=== PATIENT | female | born 1975 | race Caucasian/White ===

== ENCOUNTER 2017-09-19 08:46 | Day surgery (SDC) | payer SELFPAY ==
--- NOTE | 2017-09-18 10:02 | RAD REPORT ---
EXAM DESCRIPTION: RAD - Chest Pa And Lat (2 Views) - 09/18/2017 9:57 am CLINICAL HISTORY: Preop chest, kidney stone COMPARISON: None. TECHNIQUE: PA and lateral views of the chest were obtained. FINDINGS: The lungs are clear. Heart size is normal and central vasculature is within normal limit s. No pleural effusion or pneumothorax seen. No acute bony finding noted. No aortic abnormality. IMPRESSION: No acute cardiopulmonary process.
[2017-09-18 12:12] LABS: Absolute Lymphocytes (CBC) 1.4 K/uL (0.7-4.9); Absolute Monocytes 0.3 K/uL (0.1-1.3); Absolute Neutrophil 2.6 K/uL (1.8-8.0); Basophils % 0.6 % (0-1.3); Eosinophils % 4.3 % (0-4.4); Hematocrit 34.4 % (36.0-45.0); Lymphocytes % 30.2 % (15.3-44.8); MCH 29.8 pg (27.0-35.0); MCV 87.3 fL (80-100); MPV 10.6 fL (7.6-11.3); RBC Red Blood Cell Count 3.95 M/uL (3.86-4.86)
[2017-09-18 12:15] LABS: Protime INR 1.22
--- NOTE | 2017-09-18 12:16 | EKG ---
Test Date: 2017-09-18 Test Time: 09:47:32 Mill Control Operator: DERIK MEASUREMENT RESULTS: Intervals: Rate: 48 TN: 138 QRSD: 94 QT: 444 QTc: 396 [place]: P: 49 TN: 138 QRS: 31 T: 29 INTERPRETIVE STATEMENTS: Marked sinus bradycardia Abnormal ECG Compared to ECG 01/06/2012 11:23:28 Sinus rhythm no longer present Sinus arrhythmia no longer present Electronically Signed On 09-18-17 12:15:22 CDT by Josh Randhawa
[2017-09-18 12:17] LABS: Urine Appearance CLOUDY; Urine Bilirubin NEGATIVE (NEG); Urine Blood 3+ (NEG); Urine Color YELLOW; Urine Glucose NEGATIVE (NEG); Urine Protein TRACE (NEG)
[2017-09-18 12:18] LABS: BUN Blood Urea Nitrogen 14 mg/dL (6-20); Bicarbonate 30 mEq/L (21-31); Glucose Level 67 mg/dL (65-120); Sodium Level 143 mEq/L (135-145)
[2017-09-18 12:20] LABS: Phosphorus 3.9 mg/dL (2.5-4.3); Uric Acid 5.9 mg/dL (2.6-8.0)
[2017-09-18 12:44] LABS: Urine Microscopic Reflex ORDER UMIC
[2017-09-18 14:51] LABS: Calcium Oxalate Crystals- Ur PRESENT (NONE SEEN); Urine Bacteria 20-50 /HPF (<20); Urine Culture Reflex Order NOT NEEDED
[~2017-09-19 08:46] MED LIST: GENTAMICIN 100 MG/100 ML BAG 100 MG/100 ML BAG IV SCH
[2017-09-19] MEDS ORDERED: Ringers Lactate 1,000 ML IV ONE (09:11)
[2017-09-19] MEDS ORDERED: GENTAMICIN 100 MG/100 ML BAG 100 MG/100 ML BAG IV ONE (09:11)
[2017-09-19 09:30] LABS: Specific Gravity 1.015 (1.005-1.030)
[2017-09-19] MEDS ORDERED: MIDAZOLAM HCL 2 MG/2 ML INJ ONE (10:10)
[2017-09-19] MEDS ORDERED: PROPOFOL 200 MG/20 ML VIAL IV ONE (10:17)
[2017-09-19] MEDS ORDERED: LIDOCAINE 1% MPF 5 ML VIAL ONE (10:18)
[2017-09-19] MEDS ORDERED: FENTANYL CITR 100 MCG/2 ML ONE (10:18)
[2017-09-19] MEDS ORDERED: KETOROLAC 30 MG/ML INJ ONE (11:05)
[2017-09-19] MEDS ORDERED: MEPERIDINE HCL 25 MG/0.5 ML ONE (11:24)
[2017-09-19] MEDS ORDERED: ONDANSETRON 4 MG/2 ML VIAL ONE (11:25)
--- NOTE | 2017-09-19 11:41 | RAD REPORT ---
EXAM DESCRIPTION: RAD - Abdomen 1 View (KUB) - 09/19/2017 9:57 am CLINICAL HISTORY: Abdomen pain. ICD N 20.0 FINDINGS: The bowel gas pattern is unremarkable. Several left renal calculi are again demonstrated. A 12 millimeter calcification lies between the transverse processes of L2 and L3 and likely lies with in either the proximal left ureter or ureteral pelvic junction
[2017-09-19 12:41] VITALS: BP 117/59; TEMP 98.1; O2SAT 100
== END 2017-09-19 12:40 | disposition home or self-care (01) ==
LOC: OR 08:46
PROVIDERS: ATTEND Urology
PROC: 0TF4XZZ Fragmentation in Left Kidney Pelvis, External Approach (ICD-10-PCS; principal; 2017-09-19 10:45)
DX: N20.2 Calculus of kidney with calculus of ureter (principal)
CPT/HCPCS: 36415; 50590; 71046; 74018; 80048; 81003; 81015; 81025; 84100; 84550; 85025; 85610; 85730; 87077; 87086; 87088; 87186; 93005; J1580; J2175; J2250; J2405; J3010

== ENCOUNTER 2017-10-24 09:45 | Day surgery (SDC) | payer BC ==
--- NOTE | 2017-10-23 12:13 | RAD REPORT ---
EXAM DESCRIPTION: RAD - Chest Pa And Lat (2 Views) - 10/23/2017 11:55 am CLINICAL HISTORY: Flank pain Chest pain. COMPARISON: Abdomen 1 View (KUB) dated 10/02/2017; Abdomen 1 View (KUB) dated 09/19/2017; Chest Pa And Lat (2 Views) dated 09/18/2017; Abdomen 1 View (KUB) dated 09/14/2017 FINDINGS: The lungs are clear. The heart is normal in size. No displaced fractures. IMPRESSION: No acute or concerning finding suspected.
[2017-10-23 12:29] LABS: Urine Appearance CLEAR; Urine Bilirubin NEGATIVE (NEG); Urine Blood NEGATIVE (NEG); Urine Color YELLOW; Urine Glucose NEGATIVE (NEG); Urine Protein NEGATIVE (NEG); Urine pH 7.5 (5.0-7.0)
[2017-10-23 12:31] LABS: Urine Microscopic Reflex ORDER UMIC
[2017-10-23 12:34] LABS: Absolute Lymphocytes (CBC) 1.8 K/uL (0.7-4.9); Absolute Monocytes 0.4 K/uL (0.1-1.3); Absolute Neutrophil 3.2 K/uL (1.8-8.0); BUN Blood Urea Nitrogen 9 mg/dL (7-18); Basophils % 0.6 % (0-1.3); Bicarbonate 30 mmol/L (21-32); Glucose Level 71 mg/dL (74-106); Hematocrit 38.9 % (36.0-45.0); MCH 29.5 pg (27.0-35.0); MCV 88.4 fL (80-100); MPV 10.2 fL (7.6-11.3); Monocytes % 7.6 % (3.3-12.3); Potassium 3.8 mmol/L (3.5-5.1); Protime INR 1.21; RBC Red Blood Cell Count 4.41 M/uL (3.86-4.86); Sodium Level 143 mmol/L (136-145)
[2017-10-23 13:17] LABS: Urine Bacteria 20-50 /HPF (<20); Urine RBC <5 /HPF (NONE SEEN)
[2017-10-23 13:18] LABS: Urine Culture Reflex Order NOT NEEDED
--- NOTE | 2017-10-23 13:23 | EKG ---
Test Date: 2017-10-23 Test Time: 11:48:16 Junior Net Developer: ALMA MEASUREMENT RESULTS: Intervals: Rate: 57 ID: [id number] QRSD: 100 QT: 404 QTc: 393 [place]: P: 49 ID: [id number] QRS: 30 T: 49 INTERPRETIVE STATEMENTS: Sinus bradycardia with sinus arrhythmia Otherwise normal ECG Compared to ECG 09/18/2017 09:47:32 No significant changes Electronically Signed On 10-23-17 13:22:16 CDT by Josh Randhawa
[~2017-10-24 09:45] MED LIST changes: +CEFAZOLIN/SWI 1gm 0 GM/0 ML SYR ONE; +Ringers Lactate 0 ML IV ONE
[2017-10-24 10:13] VITALS: O2SAT 100
[2017-10-24] MEDS ORDERED: Ringers Lactate 1,000 ML IV ONE ×2 (10:18→14:03)
[2017-10-24] MEDS ORDERED: GENTAMICIN 100 MG/100 ML BAG 100 MG/100 ML BAG IV ONE (10:18)
[2017-10-24 10:29] LABS: Specific Gravity 1.025 (1.005-1.030)
--- NOTE | 2017-10-24 11:30 | RAD REPORT ---
EXAM DESCRIPTION: RAD - Abdomen 1 View (KUB) - 10/24/2017 10:48 am CLINICAL HISTORY: ICD N 20.0 will 20.0 FINDINGS: The bowel gas pattern is unremarkable. Two left renal calculi are seen. The known right renal calculus is not clearly visualized on this exam perhaps secondary to overlying stool within colon Patient's previously described 2 millimeter distal left ureteral calculus is not visualized on this e xam.
[2017-10-24] MEDS ORDERED: MIDAZOLAM HCL 2 MG/2 ML INJ ONE (12:45)
[2017-10-24] MEDS ORDERED: FENTANYL CITR 100 MCG/2 ML ONE (12:45)
[2017-10-24] MEDS ORDERED: PROPOFOL 200 MG/20 ML VIAL IV ONE (12:45)
[2017-10-24] MEDS ORDERED: ONDANSETRON HCL 40 MG/20 ML VIAL ONE (13:06)
--- NOTE | 2017-10-24 13:34 | RAD REPORT ---
EXAM DESCRIPTION: RAD - Urography Retrograde - 10/24/2017 1:27 pm CLINICAL HISTORY: Fluoroscopic assisted left ureteral stent placement COMPARISON: None. FINDINGS: Multiple fluoroscopic images were obtained during assisted placement of a left ureteral pi gtail stent. Images show stepwise placement of the stent. No suspicious or unexpected finding. Fluoro time was 1 minutes 7 seconds. Cumulative dose was 22.6 mGy. IMPRESSION: Fluoroscopic assisted left ureteral stent placement as detailed.
[2017-10-24] MEDS: MEPERIDINE HCL 50 MG/ML AMP ONE ×4 (14:19→14:42)
[2017-10-24 14:49] VITALS: TEMP 97.2
[2017-10-24] MEDS ORDERED: HYDROCODONE/APAP 5/325 MG TAB ONE (15:45)
[2017-10-24 16:18] VITALS: BP 123/67
== END 2017-10-24 16:10 | disposition home or self-care (01) ==
LOC: OR 09:45
PROVIDERS: ATTEND Urology
PROC: 0TF7XZZ Fragmentation in Left Ureter, External Approach (ICD-10-PCS; principal; 2017-10-24 11:30)
DX: Q62.39 Other obstructive defects of renal pelvis and ureter (principal); R39.12 Poor urinary stream; N39.0 Urinary tract infection, site not specified; N20.1 Calculus of ureter; N20.0 Calculus of kidney
CPT/HCPCS: 36415; 50590; 71046; 74018; 74420; 80048; 81003; 81015; 81025; 82330; 84100; 84550; 85025; 85610; 85730; 87086; 87088; 93005; J0690; J1580; J2175; J2250; J2405; J3010; Q9967

== ENCOUNTER 2018-05-02 03:36 | Emergency (ER) | payer BC, SELFPAY ==
[2018-05-02 04:11] LABS: Absolute Monocytes 0.5 K/uL (0.1-1.3); Absolute Neutrophil 3.9 K/uL (1.8-8.0); Basophils % 0.6 % (0-1.3); Eosinophils % 3.8 % (0-4.4); Lymphocytes % 29.8 % (15.3-44.8); MPV 10.4 fL (7.6-11.3); Monocytes % 7.1 % (3.3-12.3); RBC Red Blood Cell Count 4.53 M/uL (3.86-4.86)
[2018-05-02] MEDS ORDERED: MEPERIDINE HCL 25 MG/0.5 ML ONE ×2 (04:13→04:52)
[2018-05-02] MEDS ORDERED: NA CHLORIDE 0.9% 500 ML ONE (04:14)
[2018-05-02] MEDS ORDERED: ONDANSETRON 4 MG/2 ML VIAL ONE (04:14)
[2018-05-02] MEDS ORDERED: MAGNESIUM SULFATE 1 gm IVPB 1 GM/100 ML BAG IV ONE (04:14)
[2018-05-02] MEDS ORDERED: TAMSULOSIN 0.4 MG SR CAP ONE (04:14)
[2018-05-02 04:27] LABS: Albumin 3.7 g/dL (3.4-5.0); Bilirubin Direct 0.2 mg/dL (0-0.2); Bilirubin Total 0.5 mg/dL (0.2-1.0); Potassium 4.1 mmol/L (3.5-5.1); Protein, Total 7.4 g/dL (6.4-8.2)
--- NOTE | 2018-05-02 05:28 | EDPHYS ---
Physician Documentation [facility] Name: Jacklyn Gipson Age: 42 yrs Sex: Female : 1975 Arrival Date: 05/02/2018 Time: 03:39 Bed 6 Private MD: None, None ED Physician Leandro Gutierrez HPI: 05/02 03:50 This 42 yrs old Female presents to ER via Unassigned with complaints of rn Possible Kidney Stone. 03:50 The patient complains of pain in the right mid back. Onset: The symptoms/episode rn began/occurred 6 hour(s) ago. Associated signs and symptoms: Pertinent positives: nausea, vomiting. Severity of pain: At its worst the pain was moderate in the emergency department the pain has improved. The patient has experienced similar episodes in the past. The patient has not recently seen a physician. 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 - Social history:: Smoking status: Patient/guardian denies using tobacco. - Family history:: not pertinent. - Ebola Screening: : No symptoms or risks identified at this time. - Hospitalizations: : No recent hospitalization is reported. ROS: 03:50 Constitutional: Negative for fever, chills, and weight loss, Neck: Negative for injury, rn pain, and swelling, Cardiovascular: Negative for chest pain, palpitations, and edema, Respiratory: Negative for shortness of breath, cough, wheezing, and pleuritic chest pain, Abdomen/GI: + right flank pain, + nausea/vomiting : Negative for injury, bleeding, discharge, and swelling, MS/Extremity: Negative for injury and deformity, Skin: Negative for injury, rash, and discoloration, Neuro: Negative for headache, weakness, numbness, tingling, and seizure. Exam: 03:50 Constitutional: This is a well developed, well nourished patient who is awake, alert, rn walked to room without difficulty Eyes: Pupils equal round, extra-ocular motions intact. ENT: MMM Abdomen/GI: soft, non-tender Back: No spinal tenderness. No costovertebral tenderness. Full range of motion. Skin: Warm, dry with normal turgor. Normal color with no rashes, no lesions, and no evidence of cellulitis. MS/ Extremity: Pulses equal, no cyanosis. Neurovascular intact. Full, normal range of motion. Equal circumference. Neuro: Awake and alert, GCS 15. Motor strength 5/5 in all extremities. Sensory grossly intact. Cerebellar exam normal. Normal gait. Vital Signs: 03:52 BP 122 / 93; Pulse 65; Resp 20; Temp 98(O); Pulse Ox 99% on R/A; Weight 74.84 kg; tl2 Height 5 ft. 8 in. (172.72 cm); Pain 8/10; 04:58 BP 113 / 74; Pulse 56; Resp 18; Pulse Ox 100% on R/A; Pain 4/10; tl2 05:00 BP 117 / 73; Pulse 60; Resp 18; Pulse Ox 98% ; ea 03:52 Body Mass Index 25.09 (74.84 kg, 172.72 cm) tl2 MDM: 03:41 Patient medically screened. rn 05:19 Differential diagnosis: nephrolithiasis, UTI. rn 05:20 Data reviewed: vital signs, nurses notes, lab test result(s), radiologic studies, CT rn scan, and as a result, I will discharge patient. Counseling: I had a detailed discussion with the patient and/or guardian regarding: the historical points, exam findings, and any diagnostic results supporting the discharge/admit diagnosis, lab results, radiology results, the need for outpatient follow up, to return to the emergency department if symptoms worsen or persist or if there are any questions or concerns that arise at home. Response to treatment: the patient's symptoms have markedly improved after treatment, and as a result, I will discharge patient. Special discussion: I discussed with the patient/guardian in detail that at this point there is no indication for admission to the hospital. It is understood, however, that if the symptoms persist or worsen the patient needs to return immediately for re-evaluation. Based on the history and exam findings, there is no indication for further emergent testing or inpatient evaluation. I discussed with the patient/guardian the need to see the urologist for further evaluation of the symptoms. ED course: Reports feeling much better, 6mm stone, much smaller than her previous 15mm, offered admission for procedure if needs vs observation, patient chooses to go home, does not want to have surgery, return precautions given and understood.. 05/02 03:49 Order name: Basic Metabolic Panel; Complete Time: 05:19 rn 05/02 03:49 Order name: CBC with Diff; Complete Time: 05:19 rn 05/02 03:49 Order name: Hepatic Function; Complete Time: 05:19 rn 05/02 03:49 Order name: CT Stone Protocol rn 05/02 04:14 Order name: Urine Dipstick--Ancillary (enter results) 05/02 04:14 Order name: Urine --Ancillary (enter results) 05/02 03:49 Order name: IV Saline Lock; Complete Time: 04:10 rn 05/02 03:49 Order name: Labs collected and sent; Complete Time: 04:10 rn 05/02 03:49 Order name: Urine Dipstick-Ancillary (obtain specimen); Complete Time: 03:56 rn 05/02 03:49 Order name: Urine Test (obtain specimen); Complete Time: 03:56 rn Administered Medications: 04:12 Drug: Demerol 25 mg Route: IVP; Site: right antecubital; tl2 04:39 Follow up: Response: No adverse reaction; Pain is decreased tl2 04:12 Drug: Zofran 4 mg Route: IVP; Site: right antecubital; tl2 04:26 Follow up: Response: No adverse reaction; Nausea is decreased tl2 04:13 Drug: NS 0.9% 500 ml Route: IV; Rate: bolus; Site: right antecubital; tl2 05:00 Follow up: Response: No adverse reaction; IV Status: Completed infusion; IV Intake: ea 500ml 04:25 Drug: Magnesium Sulfate 1 grams Route: IVPB; Infused Over: 1 hrs; Site: right tl2 antecubital; 05:30 Follow up: Response: No adverse reaction; IV Status: Completed infusion ea 04:25 Drug: Flomax 0.4 mg Route: PO; tl2 05:00 Follow up: Response: No adverse reaction ea 04:56 Drug: Demerol 25 mg Route: IVP; Site: right antecubital; tl2 05:30 Follow up: Response: No adverse reaction; Pain is decreased ea 05:33 Drug: TORadol 30 mg Route: IVP; Site: right antecubital; ea 05:45 Follow up: Response: No adverse reaction; Medication administered at discharge. ea Disposition: 05/02/18 05:27 Discharged to Home. Impression: Ureterolithiasis. - Condition is Stable. - Discharge Instructions: Kidney Stones. - Prescriptions for Zofran ODT 4 mg Oral tablet,disintegrating - place 1 tablet by TRANSLINGUAL route every 8 hours As needed; 20 tablet. Tylenol- Codeine #3 300-30 mg Oral Tablet - take 2 tablet by ORAL route every 6 hours As needed; 30 tablet. Flomax 0.4 mg Oral Capsule, Sust. Release 24 hr - take 1 capsule by ORAL route once daily 1/2 hour following the same meal each day; 3 capsule. - Medication Reconciliation Form, Thank You Letter, Antibiotic Education, Prescription Opioid Use, Work release form form. - Follow up: Brando Ann MD; When: As needed; Reason: Recheck today's complaints, Re-evaluation by your physician. - Problem is new. - Symptoms have improved. Signatures: Dispatcher [employer] EDMS Leandro Gutierrez MD MD rn Knox, Taylor, RN RN tl2 Elizabeth Marquez RN RN ea Corrections: (The following items were deleted from the chart) 05:48 05:27 05/02/2018 05:27 Discharged to Home. Impression: Ureterolithiasis. Condition is ea Stable. Forms are Medication Reconciliation Form, Thank You Letter, Antibiotic Education, Prescription Opioid Use. Follow up: Brando Ann; When: As needed; Reason: Recheck today's complaints, Re-evaluation by your physician. Problem is new. Symptoms have improved. rn
--- NOTE | 2018-05-02 05:28 | ER ---
Nurse's Notes [facility] Name: Jacklyn Gipson Age: 42 yrs Sex: Female : 1975 Arrival Date: 05/02/2018 Time: 03:39 Bed 6 Private MD: None, None Diagnosis: Ureterolithiasis Presentation: 05/02 03:50 Presenting complaint: Patient states: "I'm pretty positive that I have another kidney tl2 stone." Pt reports having a kidney stone with shockwave treatment in the summer of this year. States pain feels the same. R flank pain that radiate to RLQ since 2100 last night. Reports vomiting. Transition of care: patient was not received from another setting of care. Onset of symptoms was May 01, 2018 at 21:00. Risk Assessment: Do you want to hurt yourself or someone else? Patient reports no desire to harm self or others. Initial Sepsis Screen: Does the patient meet any 2 criteria? No. Patient's initial sepsis screen is negative. Does the patient have a suspected source of infection? No. Patient's initial sepsis screen is negative. Care prior to arrival: None. 03:50 Method Of Arrival: Ambulatory tl2 03:50 Acuity: ISHMAEL 3 tl2 Triage Assessment: 03:52 General: Appears in no apparent distress. uncomfortable, Behavior is calm, cooperative, tl2 appropriate for age. Pain: Complains of pain in right mid back Pain radiates to right lower quadrant. Neuro: Level of Consciousness is awake, alert, obeys commands, Oriented to person, place, time, situation. Cardiovascular: Denies chest pain. Respiratory: Airway is patent Respiratory effort is even, unlabored, Respiratory pattern is regular, symmetrical. GI: Abdomen is flat, Abd is soft and non tender. : Denies burning with urination, urinary frequency. Derm: Skin is pink, warm \\T\\ dry. 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 - Social history:: Smoking status: Patient/guardian denies using tobacco. - Family history:: not pertinent. - Ebola Screening: : No symptoms or risks identified at this time. - Hospitalizations: : No recent hospitalization is reported. Screenin:54 Abuse screen: Denies threats or abuse. Nutritional screening: No deficits noted. tl2 Tuberculosis screening: No symptoms or risk factors identified. Fall Risk None identified. Assessment: 04:13 General: see triage assessment. tl2 04:39 Reassessment: Patient appears in no apparent distress at this time. Patient and/or tl2 family updated on plan of care and expected duration. Pain level reassessed. Patient is alert, oriented x 3, equal unlabored respirations, skin warm/dry/pink. pt reports that pain has decreased but is still at a 6. MD ordered for repeat dose of Demerol. Patient states feeling better. 05:43 Reassessment: Patient and/or family updated on plan of care and expected duration. Pain ea level reassessed. Patient is alert, oriented x 3, equal unlabored respirations, skin warm/dry/pink. Discharge instructions given to patient, verbalized the understanding of instruction Patient states feeling better. Patient states symptoms have improved. Vital Signs: 03:52 BP 122 / 93; Pulse 65; Resp 20; Temp 98(O); Pulse Ox 99% on R/A; Weight 74.84 kg; tl2 Height 5 ft. 8 in. (172.72 cm); Pain 8/10; 04:58 BP 113 / 74; Pulse 56; Resp 18; Pulse Ox 100% on R/A; Pain 4/10; tl2 05:00 BP 117 / 73; Pulse 60; Resp 18; Pulse Ox 98% ; ea 03:52 Body Mass Index 25.09 (74.84 kg, 172.72 cm) tl2 ED Course: 03:39 Patient arrived in ED. es 03:39 None, None is Private Physician. es 03:41 Leandro Gutierrez MD is Attending Physician. rn 03:49 Alicja Barney RN is Primary Nurse. tl2 03:51 Triage completed. tl2 03:52 Arm band placed on right wrist. tl2 03:54 Patient has correct armband on for positive identification. Placed in gown. Bed in low tl2 position. Call light in reach. Side rails up X 1. 04:13 Inserted saline lock: 20 gauge in right antecubital area, using aseptic technique. tl2 Blood collected. 04:24 CT completed. Patient tolerated procedure well. Patient moved to CT via wheelchair. Patient moved back from CT. 04:25 CT Stone Protocol In Process Unspecified. EDMS 05:27 Brando Ann MD is Referral Physician. rn 05:43 No provider procedures requiring assistance completed. IV discontinued, intact, ea bleeding controlled, No redness/swelling at site. Pressure dressing applied. Administered Medications: 04:12 Drug: Demerol 25 mg Route: IVP; Site: right antecubital; tl2 04:39 Follow up: Response: No adverse reaction; Pain is decreased tl2 04:12 Drug: Zofran 4 mg Route: IVP; Site: right antecubital; tl2 04:26 Follow up: Response: No adverse reaction; Nausea is decreased tl2 04:13 Drug: NS 0.9% 500 ml Route: IV; Rate: bolus; Site: right antecubital; tl2 05:00 Follow up: Response: No adverse reaction; IV Status: Completed infusion; IV Intake: ea 500ml 04:25 Drug: Magnesium Sulfate 1 grams Route: IVPB; Infused Over: 1 hrs; Site: right tl2 antecubital; 05:30 Follow up: Response: No adverse reaction; IV Status: Completed infusion ea 04:25 Drug: Flomax 0.4 mg Route: PO; tl2 05:00 Follow up: Response: No adverse reaction ea 04:56 Drug: Demerol 25 mg Route: IVP; Site: right antecubital; tl2 05:30 Follow up: Response: No adverse reaction; Pain is decreased ea 05:33 Drug: TORadol 30 mg Route: IVP; Site: right antecubital; ea 05:45 Follow up: Response: No adverse reaction; Medication administered at discharge. ea Intake: 05:00 IV: 500ml; Total: 500ml. ea Outcome: 05:27 Discharge ordered by . rn 05:44 Discharged to home ambulatory. ea 05:44 Condition: improved 05:44 Discharge instructions given to patient, Instructed on discharge instructions, follow up and referral plans. medication usage, Demonstrated understanding of instructions, follow-up care, medications, Prescriptions given X 1. 05:48 Patient left the ED. ea Signatures: Dispatcher [employer] Ellie Chavarria Ervin eh Nieto, Roman, MD MD rn Alicja Barney RN RN tl2 Elizabeth Marquez RN RN ea
[2018-05-02 05:40] LABS: Urine Blood 3+ (NEG); Urine Glucose NEGATIVE (NEG); Urine Protein 2+ (NEG); Urine Specific Gravity >1.030 (1.005-1.030)
[2018-05-02] MEDS ORDERED: KETOROLAC 30 MG/ML INJ ONE (05:40)
[2018-05-02 06:19] VITALS: TEMP 98
[2018-05-02 06:27] VITALS: BP 117/73; O2SAT 98
--- NOTE | 2018-05-02 08:18 | RAD REPORT ---
EXAM DESCRIPTION: CT - Stone Protocol - 05/02/2018 6:39 am CLINICAL HISTORY: Flank pain. right flank pain COMPARISON: Stone Protocol dated 10/19/2017 TECHNIQUE: Axial images were obtained without oral or IV contrast. Lack of contrast limits solid org an and vascular assessment. The qxmit-br-urys spans the entirety of the system partially obscuring uppermost abdomen and lung bases. Coronal reformatted images were obtained and reviewed. All CT scans are performed using dose optimization technique as appropriate and may include automated exposure control or mA/KV adjustment according to patient size. FINDINGS: The lower lung hidalgo are clear. Imaged portions of the liver and spleen show no suspicious findings on non-contrast imaging. The panc reas and adrenal glands are normal. No pathologic lymphadenopathy in the abdomen or pelvis. 6 x 4 mm stone is present in the proximal right ureter (980 HU) located at the L3-4 level. This resul ts in mild right hydronephrosis. Additional small bilateral punctate caliceal stones also noted. No bowel obstruction, free air, free fluid or abscess. Surgical changes of previous gastric bypass. N ormal appendix noted. No significant bony abnormality. IMPRESSION: 6 x 4 mm stone mid right ureter resulting mild right hydronephrosis. Additional punctate caliceal bilateral nephrolithiasis.
== END 2018-05-02 05:48 | disposition home or self-care (01) ==
LOC: ER 03:36
DX: N20.1 Calculus of ureter (principal); Z87.442 Personal history of urinary calculi
CPT/HCPCS: 36415; 74176; 76377; 80048; 80076; 81003; 81025; 85025; 96365; 96375; 99284; J2175; J2405; J3475

== ENCOUNTER 2019-03-08 14:31 | Emergency (ER) | payer BC, SELFPAY ==
[2019-03-08 15:35] LABS: BUN Blood Urea Nitrogen 14 mg/dL (7-18); Bicarbonate 28 mmol/L (21-32); Glucose Level 91 mg/dL (74-106); Sodium Level 140 mmol/L (136-145)
--- NOTE | 2019-03-08 15:36 | RAD REPORT ---
EXAM DESCRIPTION: CT - Stone Protocol - 03/08/2019 3:21 pm CLINICAL HISTORY: Right flank pain, kidney stone history COMPARISON: CT April 2018 TECHNIQUE: Axial 5 mm thick images were obtained without oral or IV contrast. The tixko-kx-srze span s the entirety of the system including uppermost abdomen and lung bases. All CT scans are performed using dose optimization technique as appropriate and may include automated exposure control or mA/KV adjustment according to patient size. FINDINGS: Mild to moderate dilatation is present secondary to a 4 millimeter round obstructing calcu aidee proximal right ureter. Attenuation value is 1003 Hounsfield units. On a KUB projection the stone is lateral to the L3-4 disc. No other right-sided calculi. A 4 mm calcification is present in a calyx lower pole left kidney. No suspicious renal masses. Isodense masses and pyelonephritis are not exclu ded on a stone protocol CT scan. No calculi seen in a contracted urinary bladder. Uterus and ovaries show no suspicious findings. No significant adrenal finding. Imaged portions of the liver, spleen and pancreas show no suspicious findings on non-contrast imaging . No gallbladder or biliary tree abnormality identified. No suspicious bowel findings. No findings of appendicitis. No hernia, mass or bulky lymphadenopathy noted. No free air, free fluid or inflammatory stranding. No acute bone finding. Patient has advanced for age degenerative disc and endplate changes at L5-S1. IMPRESSION: Mild to moderate dilatation of the right collecting system secondary to a proximal urete r 4 mm stone. On a KUB projection the stone localizes to the lateral margin of the L3-4 disc. Attenuation value is 1003 Hounsfield units. Isodense masses and pyelonephritis are not excluded on stone protocol technique.
[2019-03-08 15:45] LABS: Urine Blood 2+ (NEG); Urine Glucose NEGATIVE (NEG); Urine Protein 2+ (NEG); Urine Specific Gravity 1.025 (1.005-1.030)
[2019-03-08] MEDS ORDERED: MAGNESIUM SULFATE 1 gm IVPB 1 GM/100 ML BAG IV ONE (15:49)
[2019-03-08] MEDS ORDERED: KETOROLAC 30 MG/ML INJ ONE (15:49)
[2019-03-08] MEDS ORDERED: TAMSULOSIN 0.4 MG SR CAP ONE (15:49)
--- NOTE | 2019-03-08 16:09 | EDPHYS ---
Physician Documentation [facility] Name: Jacklyn Gipson Age: 43 yrs Sex: Female : 1975 Arrival Date: 03/08/2019 Time: 14:34 Bed 25 Private MD: ED Physician Lev Kurtz HPI: 03/08 15:39 This 43 yrs old Female presents to ER via Ambulatory with complaints of kb Possible Kidney Stone. 15:40 The patient complains of pain in the right flank. The pain does not radiate. Onset: The kb symptoms/episode began/occurred today. Modifying factors: The symptoms are alleviated by nothing. the symptoms are aggravated by nothing. Associated signs and symptoms: The patient has no apparent associated signs or symptoms. Severity of pain: At its worst the pain was moderate in the emergency department the pain is unchanged. The patient has experienced similar episodes in the past. The patient has not recently seen a physician. Pt reports right flank pain that started a couple of hours ago. Reports it feels similar to kidney stones that she has had in the past. Historical: - Allergies: 14:56 No Known Allergies; iw - Home Meds: 14:56 None [Active]; iw - PMHx: 14:56 Kidney stones; iw - PSHx: 14:56 Gastric Bypass; Tubal ligation; iw - Immunization history:: Adult Immunizations not up to date. - Social history:: Smoking status: Patient/guardian denies using tobacco. - Ebola Screening: : Patient negative for fever greater than or equal to 101.5 degrees Fahrenheit, and additional compatible Ebola Virus Disease symptoms Patient denies exposure to infectious person Patient denies travel to an Ebola-affected area in the 21 days before illness onset No symptoms or risks identified at this time. ROS: 15:38 Constitutional: Negative for fever, chills, and weight loss, ENT: Negative for injury, kb pain, and discharge, Neck: Negative for injury, pain, and swelling, Cardiovascular: Negative for chest pain, palpitations, and edema, Respiratory: Negative for shortness of breath, cough, wheezing, and pleuritic chest pain, Abdomen/GI: Negative for abdominal pain, nausea, vomiting, diarrhea, and constipation, MS/Extremity: Negative for injury and deformity, Skin: Negative for injury, rash, and discoloration, Neuro: Negative for headache, weakness, numbness, tingling, and seizure. 15:38 : Positive for flank pain. Exam: 15:39 Constitutional: This is a well developed, well nourished patient who is awake, alert, kb and in no acute distress. Head/Face: Normocephalic, atraumatic. Chest/axilla: Normal chest wall appearance and motion. Nontender with no deformity. No lesions are appreciated. Cardiovascular: Regular rate and rhythm with a normal S1 and S2. No gallops, murmurs, or rubs. Normal PMI, no JVD. No pulse deficits. Respiratory: Lungs have equal breath sounds bilaterally, clear to auscultation and percussion. No rales, rhonchi or wheezes noted. No increased work of breathing, no retractions or nasal flaring. Abdomen/GI: Soft, non-tender, with normal bowel sounds. No distension or tympany. No guarding or rebound. No evidence of tenderness throughout. Back: No spinal tenderness. No costovertebral tenderness. Full range of motion. Skin: Warm, dry with normal turgor. Normal color with no rashes, no lesions, and no evidence of cellulitis. MS/ Extremity: Pulses equal, no cyanosis. Neurovascular intact. Full, normal range of motion. Neuro: Awake and alert, GCS 15, oriented to person, place, time, and situation. Cranial nerves II-XII grossly intact. Motor strength 5/5 in all extremities. Sensory grossly intact. Cerebellar exam normal. Normal gait. Vital Signs: 14:57 BP 124 / 48; Pulse 73; Resp 16; Pulse Ox 100% on R/A; Weight 81.65 kg; Height 5 ft. 7 iw in. (170.18 cm); Pain 6/10; 15:17 BP 115 / 78; Pulse 58; Resp 16; Pulse Ox 98% ; bp 16:31 BP 119 / 75; Pulse 63; Resp 16; Temp 98.5; Pulse Ox 99% ; bp 14:57 Body Mass Index 28.19 (81.65 kg, 170.18 cm) iw MDM: 14:49 Patient medically screened. kb 15:38 Data reviewed: vital signs, nurses notes. Data interpreted: Pulse oximetry: on room air kb is 98 %. Interpretation: normal. 16:06 Counseling: I had a detailed discussion with the patient and/or guardian regarding: the kb historical points, exam findings, and any diagnostic results supporting the discharge/admit diagnosis, lab results, radiology results, the need for outpatient follow up, a urologist, to return to the emergency department if symptoms worsen or persist or if there are any questions or concerns that arise at home. 16:08 ED course: Pt has seen Dr Ann for stones in the past and will follow up with him. kb Pain is tolerable at this time. Will discharge home to follow up outpatient. . 03/08 14:54 Order name: Basic Metabolic Panel; Complete Time: 15:35 kb 03/08 15:39 Order name: Urine Dipstick--Ancillary (enter results); Complete Time: 15:47 eb 03/08 14:54 Order name: CT Stone Protocol; Complete Time: 15:43 kb 03/08 15:39 Order name: Urine --Ancillary (enter results); Complete Time: 15:47 eb 03/08 14:49 Order name: Urine Dipstick-Ancillary (obtain specimen); Complete Time: 15:12 kb 03/08 14:54 Order name: IV Start; Complete Time: 15:12 kb Administered Medications: 15:45 Drug: TORadol - Ketorolac 15 mg Route: IVP; Site: left antecubital; bp 16:33 Follow up: Response: Pain is decreased bp 15:45 Drug: Flomax 0.4 mg Route: PO; bp 16:33 Follow up: Response: No adverse reaction bp 15:45 Drug: Magnesium Sulfate 1 grams Route: IVPB; Infused Over: 1 hrs; Site: left bp antecubital; 16:34 Follow up: IV Status: Completed infusion; IV Intake: 100ml bp Disposition: 16:48 Co-signature as Attending Physician, Lev Kurtz MD I agree with the assessment and kdr plan of care. Disposition: 03/08/19 16:07 Discharged to Home. Impression: Calculus of kidney and ureter. - Condition is Stable. - Discharge Instructions: Kidney Stones, [id number], Dietary Guidelines to Help Prevent Kidney Stones. - Prescriptions for Tylenol- Codeine #3 300-30 mg Oral Tablet - take 1 tablet by ORAL route every 6 hours As needed; 15 tablet. Zofran 4 mg Oral Tablet - take 1 tablet by ORAL route every 6 hours As needed; 20 tablet. Flomax 0.4 mg Oral Capsule, Sust. Release 24 hr - take 1 capsule by ORAL route once daily 1/2 hour following the same meal each day; 10 capsule. Diclofenac Sodium 75 mg Oral Tablet, Delayed Release (E.C.) - take 1 tablet by ORAL route 2 times per day As needed; 30 tablet. Macrobid 100 mg Oral Capsule - take 1 capsule by ORAL route every 12 hours for 7 days; 14 capsule. - Medication Reconciliation Form, Thank You Letter, Antibiotic Education, Prescription Opioid Use form. - Follow up: Emergency Department; When: As needed; Reason: Worsening of condition. Follow up: Private Physician; When: 2 - 3 days; Reason: Recheck today's complaints, Continuance of care, Re-evaluation by your physician. Signatures: Dispatcher [employer] EDMS Mona Don, CHRIS-C BRAKE REPAIRER-Lev Langford MD MD kdr Williams, Irene, RN RN iw Mark Wall RN RN bp Corrections: (The following items were deleted from the chart) 16:34 16:07 03/08/2019 16:07 Discharged to Home. Impression: Calculus of kidney and ureter. bp Condition is Stable. Forms are Medication Reconciliation Form, Thank You Letter, Antibiotic Education, Prescription Opioid Use. Follow up: Emergency Department; When: As needed; Reason: Worsening of condition. Follow up: Private Physician; When: 2 - 3 days; Reason: Recheck today's complaints, Continuance of care, Re-evaluation by your physician. kb
--- NOTE | 2019-03-08 16:09 | ER ---
Nurse's Notes [facility] Name: Jacklyn Gipson Age: 43 yrs Sex: Female : 1975 Arrival Date: 03/08/2019 Time: 14:34 Bed 25 Private MD: Diagnosis: Calculus of kidney and ureter Presentation: 03/08 14:55 Presenting complaint: Patient states: right flank pain started 2 hours ago, feels like iw a kidney stone, +hx of stones. Transition of care: patient was not received from another setting of care. Onset of symptoms was March 08, 2019. Risk Assessment: Do you want to hurt yourself or someone else? Patient reports no desire to harm self or others. Initial Sepsis Screen: Does the patient meet any 2 criteria? No. Patient's initial sepsis screen is negative. Does the patient have a suspected source of infection? No. Patient's initial sepsis screen is negative. Care prior to arrival: None. 14:55 Method Of Arrival: Ambulatory iw 14:55 Acuity: ISHMAEL 3 iw Triage Assessment: 15:00 General: Appears in no apparent distress. uncomfortable, Behavior is cooperative, bp appropriate for age, anxious. Pain: Complains of pain in right flank. EENT: No deficits noted. Neuro: No deficits noted. Cardiovascular: No deficits noted. Respiratory: No deficits noted. GI: Reports Pain is 8 out of 10 on a pain scale. : Reports pain in right flank(s). Derm: No deficits noted. Musculoskeletal: No deficits noted. Historical: - Allergies: 14:56 No Known Allergies; iw - Home Meds: 14:56 None [Active]; iw - PMHx: 14:56 Kidney stones; iw - PSHx: 14:56 Gastric Bypass; Tubal ligation; iw - Immunization history:: Adult Immunizations not up to date. - Social history:: Smoking status: Patient/guardian denies using tobacco. - Ebola Screening: : Patient negative for fever greater than or equal to 101.5 degrees Fahrenheit, and additional compatible Ebola Virus Disease symptoms Patient denies exposure to infectious person Patient denies travel to an Ebola-affected area in the 21 days before illness onset No symptoms or risks identified at this time. Screenin:00 Abuse screen: Denies threats or abuse. Denies injuries from another. Nutritional bp screening: No deficits noted. Tuberculosis screening: No symptoms or risk factors identified. Fall Risk None identified. Assessment: 15:00 General: SEE TRIAGE NOTE. Pain: Complains of pain in right flank. GI: Bowel sounds bp present X 4 quads. Abd is soft X 4 quads. 16:32 Reassessment: PT D/C HOME AMBULATORY, DX WITH CALCULUS OF KIDNEY AND URETER. bp Vital Signs: 14:57 BP 124 / 48; Pulse 73; Resp 16; Pulse Ox 100% on R/A; Weight 81.65 kg; Height 5 ft. 7 iw in. (170.18 cm); Pain 6/10; 15:17 BP 115 / 78; Pulse 58; Resp 16; Pulse Ox 98% ; bp 16:31 BP 119 / 75; Pulse 63; Resp 16; Temp 98.5; Pulse Ox 99% ; bp 14:57 Body Mass Index 28.19 (81.65 kg, 170.18 cm) iw ED Course: 14:34 Patient arrived in ED. mr 14:43 Mona Don, JOHN [facility]. kb 14:43 Lev Kurtz MD is Attending Physician. kb 14:50 Mark Wall, KELLEY is Primary Nurse. bp 14:56 Triage completed. iw 14:59 Arm band placed on. iw 15:00 Patient has correct armband on for positive identification. Placed in gown. Bed in low bp position. Call light in reach. Side rails up X2. 15:10 Inserted saline lock: 20 gauge in left antecubital area, using aseptic technique. Blood bp collected. 15:21 CT Stone Protocol In Process Unspecified. EDMS 16:32 No provider procedures requiring assistance completed. IV discontinued, intact, bp bleeding controlled, No redness/swelling at site. Pressure dressing applied. Administered Medications: 15:45 Drug: TORadol - Ketorolac 15 mg Route: IVP; Site: left antecubital; bp 16:33 Follow up: Response: Pain is decreased bp 15:45 Drug: Flomax 0.4 mg Route: PO; bp 16:33 Follow up: Response: No adverse reaction bp 15:45 Drug: Magnesium Sulfate 1 grams Route: IVPB; Infused Over: 1 hrs; Site: left bp antecubital; 16:34 Follow up: IV Status: Completed infusion; IV Intake: 100ml bp Intake: 16:34 IV: 100ml; Total: 100ml. bp Outcome: 16:07 Discharge ordered by MD. gaona 16:33 Discharged to home ambulatory. bp 16:33 Condition: stable 16:33 Discharge instructions given to patient, Instructed on discharge instructions, follow up and referral plans. medication usage, Demonstrated understanding of instructions, follow-up care, medications, Prescriptions given X 5 16:34 Patient left the ED. bp Signatures: Dispatcher [employer] EDMS Mona Don, JOHN RETAIL POS SPECIALIST-Mariely Rodney mr Savannah Chapman, RN RN iw Makr Wall, KELLEY RN bp Corrections: (The following items were deleted from the chart) 15:15 14:45 General: SEE TRIAGE NOTE. bp bp
[2019-03-08 18:29] VITALS: BP 119/75; TEMP 98.5; O2SAT 99
== END 2019-03-08 16:34 | disposition home or self-care (01) ==
LOC: ER 14:31
DX: N20.2 Calculus of kidney with calculus of ureter (principal); Z87.442 Personal history of urinary calculi
CPT/HCPCS: 96365; 80048; 36415; 81025; 81003; 76377; 74176; 96375; 99284; J3475

== ENCOUNTER 2022-06-02 19:40 | Emergency (ER) | payer OTHER ==
--- OUTSIDE RECORDS SUMMARY | 2022-06-02 19:48 | XMS REPORT | Continuity of Care Document ---
:1975 Author Organization [facility] t Address [address] [place] [address] Care Team Providers Name Role Phone JEROME TEJADA Primary Care Physician Unavailable Benito Monae Attending Clinician Unavailable Samy BENSON, Alicia Bright Attending Clinician Unavailable KENJI BURGOS Attending Clinician Unavailable Only, Ang Db Test Attending Clinician Unavailable Julian BASHIR, Kenji Attending Clinician JAIMEE GREEN Attending Clinician Unavailable DAPHNEY GHOSH Attending Clinician Unavailable Benito Monae Admitting Clinician Unavailable Payers Payer Name Policy Type Policy Number Effective Date Expiration Date S [facility] [id number] 2019 00:00:00 Problems Condition Condition Condition Status Onset Resolution Last Treating Co mments Source Name Details Category Date Date Treatment Clinician Date Kidney Kidney Disease Active [facility] stone on stone on 09-13 [place] Allergies, Adverse Reactions, Alerts Allergy Allergy Status Severity Reaction(s) Onset Inactive Treating Comm ents Source Name Type Date Date Clinician NO KNOWN Drug Active [facility] ALLERGIE Class it[facility] of [facility] [place] [facility] [place] Social History Social Habit Start Date Stop Date Quantity Comments Source Exposure to Yes [facility] SARS-CoV-2 (event) Medica l Branch Sex Assigned At [birth year] [facility] 00:00:00 00:00:00 Medical Branch Smoking Status Start Date Stop Date Source Unknown if ever smoked [facility] Medical Branch Medications Ordered Filled Start Stop Current Ordering Indication Dosage Frequency Signature Comments Components Source Medication Medication Date Date Medication? Clinician (SIG) Name Name araceli 2018-0 Yes 1{tbl} Take 1 Un telly en-codeine 6-13 tablet by ity of (TYLENOL-CO 00:00: mouth [place] DEINE #3) 00 every 6 Medical 300-30 mg (six) Branch tablet hours as needed for Pain (scale 4-6). tamsulosin 2018-0 Yes .4mg Take 1 Unive rs 0.4 mg 24 6-13 capsule by ity of hr capsule 00:00: mouth at [place] 00 bedtime. Medical Branch acetaminoph 2018-0 Yes 1{tbl} Take 1 Un telly en-codeine 6-13 tablet by ity of (TYLENOL-CO 00:00: mouth [place] DEINE #3) 00 every 6 Medical 300-30 mg (six) Branch tablet hours as needed for Pain (scale 4-6). tamsulosin 2018-0 Yes .4mg Take 1 Unive rs 0.4 mg 24 6-13 capsule by ity of hr capsule 00:00: mouth at [place] 00 bedtime. Medical Branch phenazopyri 2018-0 Yes 200mg Take 1 Uni vers dine 200 mg 2-23 tablet by ity of tablet 00:00: mouth 3 00 (three) Medical times Branch daily. ondansetron 2018-0 Yes 4mg Take 1 Univ ers (ZOFRAN 2-23 tablet by ity of ODT) 4 mg 00:00: mouth [place] disintegrat 00 every 8 Medic al ing tablet (eight) Branch hours as needed for Nausea and Vomiting (N/V). phenazopyri 2018-0 Yes 200mg Take 1 Uni vers dine 200 mg 2-23 tablet by ity of tablet 00:00: mouth 3 [place] 00 (three) Medical times Branch daily. ondansetron 2018-0 Yes 4mg Take 1 Univ ers (ZOFRAN 2-23 tablet by ity of ODT) 4 mg 00:00: mouth [place] disintegrat 00 every 8 Medic al ing tablet (eight) Branch hours as needed for Nausea and Vomiting (N/V). Procedures This patient has no known procedures. Encounters Start End Encounter Admission Attending Care Care Encounter Source Date/Time Date/Time Type Type Clinicians Facility Department ID 2022-05-17 2022-05-17 Outpatient ADDISON JAIME [id number] Brad 17:08:04 17:08:04 [id number] F [facility] 2021-10-28 2021-10-28 Outpatient Benito Roque HCAPM ANGEL LA0 [id number] [facility] 08:00:00 08:00:00 52 [facility] 2021-04-02 2021-04-02 Letter BENITO Pablo [id number] Univers 00:00:00 00:00:00 (Out) Alicia Bright [facility] [id number] it [facility] [id number] [place] [id number] [address] 2021-03-31 2021-03-31 [facility] [id number] Univers 18:00:00 18:20:13 [facility] 2021-03-31 2021-03-31 Laboratory Only, Ang Db Test [facility] [id number] Univers 18:00:00 18:15:[address] [id number] [id number] [place] KAYLIN?BLEA [phone] [address] MEDICAL OFFICE BUILDING 2020-04-10 2020-04-10 Outpatient R [facility] [id number] Univers 19:20:00 19:20:00 [facility] 2020-03-31 2020-03-31 [facility] [id number] Univers 18:40:00 18:40:00 JAIMEE montañoy o f [facility] 2019-10-04 2019-10-04 [facility] [id number] Univers 13:40:00 13:40:00 [facility] 2007-06-08 2007-06-08 Outpatient [facility] [id number] Univers 00:00:00 00:00:00 5 ity [facility] 2007-03-16 2007-03-16 Outpatient [facility] [id number] Univers 00:00:00 16:30:00 0 [facility] 2006-12-13 2006-12-13 Outpatient [facility] [id number] Univers 00:00:00 16:57:00 8 [facility] 2006-09-18 2006-09-18 Outpatient [facility] [id number] Univers 00:00:00 16:18:00 1 [facility] 2006-06-26 2006-06-26 Outpatient [facility] [id number] Univers 00:00:00 16:11:00 0 [facility] 2006-03-21 2006-03-21 Outpatient [facility] [id number] Univers 00:00:00 18:24:00 8 [facility] 2005-12-20 2005-12-20 Outpatient [facility] [id number] Univers 00:00:00 18:48:00 9 [facility] Results This patient has no known results.
--- NOTE | 2022-06-02 22:10 | RAD REPORT ---
EXAM DESCRIPTION: US - Extremity Venous [facility] - 06/02/2022 9:50 pm CLINICAL HISTORY: Swelling COMPARISON: None. TECHNIQUE: Real-time sonographic evaluation of the left lower extremity deep venous system was perfo rmed. FINDINGS: Normal compressibility, flow augmentation, phasic flow and spontaneous flow is identified in the left lower extremity deep venous system. No intraluminal filling defects seen. IMPRESSION: No evidence of left lower extremity DVT.
--- NOTE | 2022-06-02 22:21 | ER ---
Nurse's Notes [facility] Name: Jacklyn Gipson Age: 46 yrs Sex: Female : 1975 Arrival Date: 06/02/2022 Time: 19:41 Bed 20 Private MD: Dmitriy Wallace B Diagnosis: Pain in left lower leg;Localized edema Presentation: 06/02 20:34 Chief complaint: Patient states: "Yesterday I starting getting really bad pain vc1 radiating down the back of my calf and into my left ankle. My ankle is swollen.". Coronavirus screen: Vaccine status: Patient reports being unvaccinated. Client denies travel out of the [place] in the last 14 days. At this time, the client does not indicate any symptoms associated with coronavirus-19. Ebola Screen: Patient negative for fever greater than or equal to 101.5 degrees Fahrenheit, and additional compatible Ebola Virus Disease symptoms Patient denies exposure to infectious person. Patient denies travel to an Ebola-affected area in the 21 days before illness onset. No symptoms or risks identified at this time. Initial Sepsis Screen: Does the patient meet any 2 criteria? No. Patient's initial sepsis screen is negative. Does the patient have a suspected source of infection? No. Patient's initial sepsis screen is negative. Risk Assessment: Do you want to hurt yourself or someone else? Patient reports no desire to harm self or others. Onset of symptoms was June 01, 2021. 20:34 Method Of Arrival: Ambulatory vc1 20:34 Acuity: ISHMAEL 3 vc1 CLIENT PROGRAM MANAGER: 22:43 LMP N/A - TUbes ties vc1 Historical: - Allergies: 20:38 NSAIDS; vc1 - Home Meds: 20:38 None [Active]; vc1 - PMHx: 20:38 Kidney stones; vc1 - PSHx: 20:38 gastric bypass; tubes tied; vc1 - Immunization history:: Adult Immunizations up to date. - Social history:: Smoking status: Patient denies any tobacco usage or history of. Screenin:00 Abuse screen: Denies threats or abuse. Denies injuries from another. ha1 21:00 Nutritional screening: No deficits noted. Tuberculosis screening: No symptoms or risk ha1 factors identified. Assessment: 21:00 General: Appears comfortable, Behavior is calm, cooperative. Pain: Complains of pain in ha1 left leg Pain does not radiate. Pain at worst was 9 out of 10 on a pain scale. Quality of pain is described as burning, throbbing. Neuro: Level of Consciousness is awake, alert, obeys commands, Oriented to person, place, time, situation. Cardiovascular: Denies chest pain, Capillary refill < 3 seconds Patient's skin is warm and dry. Respiratory: Airway is patent Respiratory effort is even, unlabored, Respiratory pattern is regular, symmetrical. GI: No signs and/or symptoms were reported involving the gastrointestinal system. Abdomen is round non-distended. : No signs and/or symptoms were reported regarding the genitourinary system. EENT: No signs and/or symptoms were reported regarding the EENT system. Derm: Skin is pink, warm \\T\\ dry. Musculoskeletal: Circulation, motion, and sensation intact. Range of motion: intact in all extremities, Swelling present in left leg. Vital Signs: 20:34 BP 121 / 75; Pulse 91; Resp 18; Temp 97.7; Pulse Ox 100% ; Weight 90.72 kg; Height 5 vc1 ft. 8 in. (172.72 cm); Pain 7/10; 21:00 BP 98 / 68; Pulse 83; Resp 18 S; Pulse Ox 100% on R/A; ha1 20:34 Body Mass Index 30.41 (90.72 kg, 172.72 cm) vc1 ED Course: 19:41 Patient arrived in ED. mr 19:42 Dmitriy Wallace MD is Private Physician. mr 20:37 Triage completed. vc1 20:39 Arm band placed on right wrist. vc1 20:44 Rojas Mosher NP is PHCP. pm1 20:44 Leandro Cuba MD is Attending Physician. pm1 21:25 Lashae Becker, KELLEY is Primary Nurse. ha1 22:42 No provider procedures requiring assistance completed. Patient did not have IV access vc1 during this emergency room visit. Administered Medications: No medications were administered Medication: 22:43 VIS not applicable for this client. vc1 Outcome: 22:20 Discharge ordered by . pm1 22:42 Discharged to home ambulatory, with significant other. vc1 22:42 Condition: good 22:42 Discharge instructions given to patient, Instructed on discharge instructions, follow up and referral plans. Demonstrated understanding of instructions, follow-up care. 22:43 Patient left the ED. vc1 Signatures: Mariely Marcial mr VidhiRojas, AUTOMATIC DRY STARCH OPERATOR AUTOMATIC DRY STARCH OPERATOR pm1 Jazlyn Boss RN RN vc1 Lashae Becker RN RN ha1 Corrections: (The following items were deleted from the chart) 20:39 20:38 Allergies: No Known Allergies; 1 vc1
--- NOTE | 2022-06-02 22:21 | EDPHYS ---
Physician Documentation [facility] Name: Jacklyn Gipson Age: 46 yrs Sex: Female : 1975 Arrival Date: 06/02/2022 Time: 19:41 Bed 20 Private MD: Dmitriy Wallace B ED Physician Leandro Cuba HPI: 06/02 22:20 This 46 yrs old Female presents to ER via Ambulatory with complaints of Leg Swelling, pm1 Ankle Swelling. 22:20 The patient presents with pain, that is acute, swelling. The complaints affect the left pm1 ankle. Onset: The symptoms/episode began/occurred today. Context: The problem was sustained at work, resulted from an unknown cause, The patient can fully bear weight on the affected extremity. the patient is able to ambulate. Associated signs and symptoms: Pertinent positives: swelling, Pertinent negatives: fever, numbness, tingling. Modifying factors: The symptoms are alleviated by elevation of extremity, the symptoms are aggravated by walking. Severity of symptoms: in the emergency department the symptoms are unchanged. The patient has not experienced similar symptoms in the past. The patient has not recently seen a physician. 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 - Social history:: Smoking status: Patient denies any tobacco usage or history of. ROS: 22:20 Constitutional: Negative for fever, chills, and weight loss. pm1 22:20 Cardiovascular: Negative for chest pain, palpitations, and edema, Respiratory: Negative pm1 for shortness of breath, cough, wheezing, and pleuritic chest pain, Abdomen/GI: Negative for abdominal pain, nausea, vomiting, diarrhea, and constipation, Skin: Negative for injury, rash, and discoloration, Neuro: Negative for headache, weakness, numbness, tingling, and seizure. 22:20 MS/extremity: Positive for Left ankle swelling, left calf pain with extension of foot and walking. 22:20 All other systems are negative. Exam: 22:20 Constitutional: This is a well developed, well nourished patient who is awake, alert, pm1 and in no acute distress. Head/Face: Normocephalic, atraumatic. 22:20 Skin: Warm, dry with normal turgor. Normal color with no rashes, no lesions, and no evidence of cellulitis. 22:20 Cardiovascular: Exam negative for acute changes, Rate: normal, Rhythm: regular, Pulses: no pulse deficits are appreciated, Pulses are 2+ in right dorsalis pedis artery and left dorsalis pedis artery. Mild swelling present to left ankle. 22:20 Respiratory: Exam negative for acute changes, respiratory distress, shortness of breath. 22:20 Musculoskeletal/extremity: Extremities: all appear grossly normal, with no appreciated pain with palpation, DVT Exam: no pain, no tenderness, negative Homans' sign noted on exam, no appreciated bluish discoloration, no erythema, no increased warmth. Vital Signs: 20:34 BP 121 / 75; Pulse 91; Resp 18; Temp 97.7; Pulse Ox 100% ; Weight 90.72 kg; Height 5 vc1 ft. 8 in. (172.72 cm); Pain 7/10; 21:00 BP 98 / 68; Pulse 83; Resp 18 S; Pulse Ox 100% on R/A; ha1 20:34 Body Mass Index 30.41 (90.72 kg, 172.72 cm) vc1 MDM: 20:55 Patient medically screened. pm1 22:19 Data reviewed: vital signs. Counseling: I had a detailed discussion with the patient pm1 and/or guardian regarding: the historical points, exam findings, and any diagnostic results supporting the discharge/admit diagnosis, radiology results, the need for outpatient follow up, to return to the emergency department if symptoms worsen or persist or if there are any questions or concerns that arise at home. 22:19 Differential diagnosis: intermittent claudication, DVT, muscle strain, cramps, pm1 arthritis. 03 20:55 Order name: Extremity Venous [employer] US pm1 06/02 22:11 Order name: US; Complete Time: 22:16 EDMS Administered Medications: No medications were administered Disposition: 06/03 05:59 Co-signature as Attending Physician, Leandro Cuba MD I reviewed the patient's care rt provided by the Advanced Practice Provider and agree with the diagnosis and treatment plan. Disposition Summary: 06/02/22 22:20 Discharge Ordered Location: Home pm1 Problem: new pm1 Symptoms: have improved pm1 Condition: Stable pm1 Diagnosis - Pain in left lower leg pm1 - Localized edema pm1 Followup: pm1 - With: Emergency Department - When: As needed - Reason: Worsening of condition Followup: pm1 - With: Private Physician - When: 2 - 3 days - Reason: Recheck today's complaints, Continuance of care, Re-evaluation by your physician Discharge Instructions: - Discharge Summary Sheet pm1 - Peripheral Edema pm1 Forms: - Medication Reconciliation Form pm1 - Thank You Letter pm1 - Antibiotic Education pm1 - Prescription Opioid Use pm1 Signatures: Dispatcher [employer] EDMS Rojas Mosher NP BEAD MACHINE OPERATOR pm1 Jazlyn Boss RN RN vc1 Leandro Cuba MD MD rt Corrections: (The following items were deleted from the chart) 06/02 20:39 20:38 Allergies: No Known Allergies; vc1 vc1
[2022-06-02 23:22] VITALS: TEMP 97.7; O2SAT 100
[2022-06-02 23:23] VITALS: BP 98/68
== END 2022-06-02 22:43 | disposition home or self-care (01) ==
LOC: ER 19:40
DX: M25.572 Pain in left ankle and joints of left foot (principal); R60.0 Localized edema; Z88.6 Allergy status to analgesic agent
CPT/HCPCS: 93971; 99281